=== PATIENT | female | born 1945 | race African-American/Black ===

== ENCOUNTER → 2018-04-04 | Day surgery (SDC) | payer MEDICARE, OTHER ==
--- NOTE | 2018-04-01 14:05 | Diagnostic Imaging Report ---
EXAMINATION: CHEST 2 VIEWS INDICATION: Pre-admit COMPARISON: None FINDINGS: TUBES and LINES: None. LUNGS: Lungs are well inflated. Lungs are clear. There is no evidence of pneumonia or pulmonary edema. PLEURA: No pleural effusion or pneumothorax. HEART AND MEDIASTINUM: The cardiomediastinal silhouette is unremarkable. BONES AND SOFT TISSUES: No acute osseous lesion. Soft tissues are unremarkable. UPPER ABDOMEN: No free air under the diaphragm. IMPRESSION: No acute radiographic abnormality. Signed by: Dr. Jj Domingo MD on 04/01/2018 2:01 PM
[2018-04-01 14:55] LABS: BASOPHILS % 0.4 % (0.0-1.0); EOSINOPHILS # (AUTO) 0.4 (0.0-0.4); EOSINOPHILS % 4.6 % (0.0-6.0); HEMATOCRIT 37.5 % (34.2-44.1); LYMPHOCYTES # (AUTO) 2.3 (1.0-3.2); LYMPHOCYTES % 30.3 % (18.0-39.1); MEAN CORPUSCULAR HEMOGLOBIN 28.4 pg (28-32); MEAN CORPUSCULAR VOLUME 88.7 fL (81-99); MONOCYTES # (AUTO) 0.5 (0.2-0.8); MONOCYTES % 6.1 % (4.4-11.3); NEUTROPHILS # (AUTO) 4.4 (2.1-6.9); NEUTROPHILS % 58.3 % (38.7-80.0); PLATELET COUNT 155 x10e3/uL (140-360); RED BLOOD COUNT 4.23 x10e6/uL (3.6-5.1); RED CELL DISTRIBUTION WIDTH 12.6 % (11.7-14.4)
[2018-04-01 14:58] LABS: ANION GAP 15.6 mmol/L (8-16); BLOOD UREA NITROGEN 17 mg/dL (7-26); BUN/CREATININE RATIO 20 (6-25); CALCIUM 9.8 mg/dL (8.4-10.2); CARBON DIOXIDE 24 mmol/L (22-29); CHLORIDE 102 mmol/L (98-107); CREATININE, SERUM 0.84 mg/dL (0.57-1.11); EST GLOMERULAR FILTRATION RATE > 60 ML/MIN (60-); GLUCOSE 239 mg/dL (74-118); POTASSIUM 3.6 mmol/L (3.5-5.1); SODIUM 138 mmol/L (136-145)
[~2018-04-04] MED LIST: AMLODIPINE BESY10 MG PO; ASPIRIN81 MG; ATENOLOL50 MG; BUPIVACAINE HCL 0.5% INJ 30 ML VIAL INJ ONE; CEFAZOLIN SOD 2 GM/D5W 50ML 50 ML IV ONE; DEXAMETHASONE SOD PHOS INJ 4 MG/ML VIAL ONE; EPHEDRINE SULFATE INJ 50 MG/10 ML SYR ONE; FENTANYL CITRATE/PF 100MCG/2 ML INJ ONE; GLIMEPIRIDE4 MG; HYZAAR 100-251 EACH; INSULIN REGULAR, HUMAN 100 UNIT/1 ML 3ML VIAL ONE; LIDOCAINE HCL 2% LOCAL INJ 5 ML SDV VIAL INJ ONE; MIDAZOLAM HCL 2 MG/2 ML VIAL ONE; NEOSTIGMINE 1 MG/ML 10ML VIAL ONE; PROPOFOL IV EMULSION 10 MG/ML 20 ML VIAL ONE; SEVOFLURANE INHAL SOLN 250 ML PEN BTL ONE
[2018-04-04 10:30] VITALS: BP 141/74
--- NOTE | 2018-04-04 10:44 | Operative Report ---
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 TITLE OF OPERATION: Arthroplasty, digits 4 and 5 of the right foot with debridement of the chronic pre-ulcerative lesions. ANESTHESIA: General endotracheal. HEMOSTASIS: A right thigh tourniquet at 350 mmHg. PROCEDURE IN DETAIL: The patient was taken to the operating room in a mildly state and placed upon the operating table in the supine position. Following induction of general anesthetic, the right lower extremity was elevated to 60 degrees to exsanguinate before inflating the pneumatic thigh tourniquet to 350 mmHg for hemostasis. Her lower extremity was placed upon the operating table prior to performing the following procedure. PROCEDURE #1: Arthroplasty, 4th and 5th digits of the right foot. A linear longitudinal incision made overlying the dorsal aspect of the proximal phalangeal joint of the right foot. The incision was deepened via sharp and blunt dissection down to the level of the dorsal capsular structure. Care was taken to identify and retract all vital structures encountered. The head of the proximal phalanx was delivered in the surgical site and a transverse tenotomy was performed. The head of the proximal phalanx was resected utilizing an oscillating saw to straighten the 4th and 5th digits. These were done separately and simultaneously through separate incisions. The area was then irrigated with copious amounts of sterile saline solution. Deep closure and tendon repair was 3-0 Vicryl. Subcutaneous closure was 4-0 Vicryl and skin closure was 4-0 nylon. Digit alignment was noted to be appropriate. All superficial lesions, pre-ulcerative nature were debrided utilizing a 15 blade as well. There was no full-thickness skin break in those areas. The areas after copious irrigation and cleaning were dressed with the appropriate mildly compressive dressings utilizing a Betadine splint, as well as Adaptic, 4 x 4's, and gauze. The release of the pneumatic thigh tourniquet showed a normal hyperemic flush to all digits of the right foot. Patient left the operating room with vital signs stable and in apparent satisfactory condition having tolerated both anesthetic and procedure very well. Job#: [id number]
== END | disposition home or self-care (01) ==
LOC: OR 06:53
PROVIDERS: ATTEND Podiatrist Foot Surgery
DX: M20.41 Other hammer toe(s) (acquired), right foot (principal); L98.8 Other specified disorders of the skin and subcutaneous tissue; I10 Essential (primary) hypertension; E11.9 Type 2 diabetes mellitus without complications; Z88.5 Allergy status to narcotic agent; Z01.810 Encounter for preprocedural cardiovascular examination; Z01.812 Encounter for preprocedural laboratory examination; Z01.818 Encounter for other preprocedural examination; Z79.84 Long term (current) use of oral hypoglycemic drugs
CPT/HCPCS: 28285 ×2; 36415 ×2; 71046; 80048; 82948; 85025; 93005; J1100; J2001; J2250; 76000; J2710

== ENCOUNTER 2022-05-01 12:50 | Inpatient (IN) | payer MEDICARE, OTHER ==
[2022-05-01] VITALS (10 sets, daily range): BP systolic 115–155; BP diastolic 50–70
[~2022-05-01] VITALS: Ht 167.6 cm; Wt 127.0 kg
[~2022-05-01 12:50] MED LIST changes: -ATENOLOL50 MG; +ATENOLOL50 MG PO; -BUPIVACAINE HCL 0.5% INJ 30 ML VIAL INJ ONE; -CEFAZOLIN SOD 2 GM/D5W 50ML 50 ML IV ONE; -DEXAMETHASONE SOD PHOS INJ 4 MG/ML VIAL ONE; -EPHEDRINE SULFATE INJ 50 MG/10 ML SYR ONE; -FENTANYL CITRATE/PF 100MCG/2 ML INJ ONE; -GLIMEPIRIDE4 MG; +GLIMEPIRIDE4 MG PO; -HYZAAR 100-251 EACH; +HYZAAR 100-251 EACH PO; -INSULIN REGULAR, HUMAN 100 UNIT/1 ML 3ML VIAL ONE; -LIDOCAINE HCL 2% LOCAL INJ 5 ML SDV VIAL INJ ONE; -MIDAZOLAM HCL 2 MG/2 ML VIAL ONE; -NEOSTIGMINE 1 MG/ML 10ML VIAL ONE; -PROPOFOL IV EMULSION 10 MG/ML 20 ML VIAL ONE; -SEVOFLURANE INHAL SOLN 250 ML PEN BTL ONE
[2022-05-01] MEDS ORDERED: FUROSEMIDE INJ 10 MG/ML 4 ML VIAL IV ONE (13:00)
[2022-05-01 14:22] LABS: BASOPHILS # (AUTO) 0.1 (0.0-0.1); BASOPHILS % 0.5 % (0.0-1.0); EOSINOPHILS # (AUTO) 0.3 (0.0-0.4); EOSINOPHILS % 3.1 % (0.0-6.0); HEMATOCRIT 29.7 % (34.2-44.1); HEMOGLOBIN 8.3 g/dL (12.0-16.0); LYMPHOCYTES # (AUTO) 1.1 (1.0-3.2); LYMPHOCYTES % 11.3 % (18.0-39.1); MEAN CORPUSCULAR HEMOGLOBIN 28.1 pg (28-32); MEAN CORPUSCULAR HGB CONC 27.9 g/dL (31-35); MEAN CORPUSCULAR VOLUME 100.7 fL (81-99); MONOCYTES # (AUTO) 0.8 (0.2-0.8); MONOCYTES % 7.9 % (4.4-11.3); NEUTROPHILS # (AUTO) 7.7 (2.1-6.9); NEUTROPHILS % 76.9 % (38.7-80.0); PLATELET COUNT 234 x10e3/uL (140-360); RED BLOOD COUNT 2.95 x10e6/uL (3.6-5.1); RED CELL DISTRIBUTION WIDTH 14.5 % (11.7-14.4)
[2022-05-01 14:59] LABS: ALANINE AMINOTRANSFERASE 15 IU/L (0-55); ALBUMIN 2.8 g/dL (3.5-5.0); ALBUMIN/GLOBULIN RATIO 0.8 (0.8-2.0); ALKALINE PHOSPHATASE 92 IU/L (40-150); ANION GAP 17.2 mmol/L (8-16); BLOOD UREA NITROGEN 22 mg/dL (7-26); BUN/CREATININE RATIO 24 (6-25); CALCIUM 8.6 mg/dL (8.4-10.2); CARBON DIOXIDE 24 mmol/L (22-29); CHLORIDE 105 mmol/L (98-107); GLUCOSE 212 mg/dL (74-118); POTASSIUM 4.2 mmol/L (3.5-5.1); SODIUM 142 mmol/L (136-145)
[2022-05-01] MEDS ORDERED: IOPAMIDOL 370 MG/ML 100 ML INFUS..BTL INJ ONE (17:21)
[2022-05-01] MEDS ORDERED: ASPIRIN EC81 MG PO (18:29)
[2022-05-01] MEDS ORDERED: PIOGLITAZONE HC45 MG PO (18:48)
[2022-05-01] MEDS ORDERED: OMEPRAZOLE40 MG PO (18:48)
[2022-05-01] MEDS ORDERED: ULTRAM 50MG50 MG PO (18:48)
[2022-05-01] MEDS ORDERED: METFORMIN HCL1000 MG PO (18:48)
[2022-05-01] MEDS ORDERED: MONTELUKAST SOD10 MG PO (18:48)
[2022-05-01] MEDS ORDERED: IPRATROPIUM BRO15 ML (18:48)
[2022-05-01] MEDS ORDERED: FERROUS SULFAT324 MG PO (18:48)
[2022-05-01] MEDS ORDERED: CELECOXIB200 MG PO (18:48)
[2022-05-01] MEDS ORDERED: CYCLOBENZAPRINE10 MG PO (18:49)
[2022-05-01] MEDS ORDERED: COQ-10100 MG PO (18:57)
[2022-05-01] MEDS ORDERED: COLACE100 M1 PO (18:57)
[2022-05-01] MEDS ORDERED: ZYRTEC10 MG PO (18:57)
[2022-05-01] MEDS ORDERED: VITAMIN C1000 MG PO (18:57)
[2022-05-01] MEDS ORDERED: LIPITOR20 MG PO (22:30)
[2022-05-02] VITALS (8 sets, daily range): BP systolic 115–139; BP diastolic 52–70
[2022-05-02 04:52] LABS: BASOPHILS % 0.3 % (0.0-1.0); EOSINOPHILS # (AUTO) 0.4 (0.0-0.4); EOSINOPHILS % 5.5 % (0.0-6.0); HEMATOCRIT 27.3 % (34.2-44.1); HEMOGLOBIN 7.9 g/dL (12.0-16.0); LYMPHOCYTES % 14.1 % (18.0-39.1); MEAN CORPUSCULAR HEMOGLOBIN 28.7 pg (28-32); MEAN CORPUSCULAR HGB CONC 28.9 g/dL (31-35); MEAN CORPUSCULAR VOLUME 99.3 fL (81-99); MONOCYTES # (AUTO) 0.8 (0.2-0.8); MONOCYTES % 10.3 % (4.4-11.3); NEUTROPHILS # (AUTO) 5.1 (2.1-6.9); NEUTROPHILS % 69.5 % (38.7-80.0); PLATELET COUNT 285 x10e3/uL (140-360); RED BLOOD COUNT 2.75 x10e6/uL (3.6-5.1); RED CELL DISTRIBUTION WIDTH 14.4 % (11.7-14.4)
[2022-05-02 05:08] LABS: ANION GAP 13.9 mmol/L (8-16); CALCIUM 8.5 mg/dL (8.4-10.2); CREATININE, SERUM 0.81 mg/dL (0.57-1.11); POTASSIUM 3.9 mmol/L (3.5-5.1)
[2022-05-02] MEDS: ATENOLOL 50 MG TAB PO SCH ×2 (09:00→12:04)
[2022-05-02] MEDS ORDERED: FUROSEMIDE INJ 10 MG/ML 4 ML VIAL IV SCH (09:00)
[2022-05-02] MEDS: LOSARTAN POTASSIUM 25 MG TAB PO SCH ×3 (09:00→17:00)
[2022-05-02] MEDS: ASPIRIN 81 MG ENTERIC COATED PO SCH ×2 (09:48→17:18)
[2022-05-02] MEDS: DOCUSATE SODIUM 100 MG CAP PO SCH ×2 (09:49→17:18)
[2022-05-02] MEDS: METFORMIN HCL 500 MG TAB CR PO SCH ×2 (10:09→17:17)
[2022-05-02] MEDS: GLIMEPIRIDE 2 MG TAB PO SCH (10:27)
[2022-05-02] MEDS: FUROSEMIDE INJ 10 MG/ML 4 ML VIAL IV SCH ×3 (11:59→23:45)
[2022-05-02] MEDS: MONTELUKAST SODIUM 10 MG TAB PO SCH (22:25)
[2022-05-02] MEDS: ATORVASTATIN 20 MG TAB PO SCH (22:25)
[2022-05-03] VITALS (10 sets, daily range): BP systolic 93–159; BP diastolic 49–74
[2022-05-03] MEDS ORDERED: CEPACOL SORE THROAT LOZENGES PO PRN (04:00)
[2022-05-03] MEDS: ACETAMINOPHEN 325 MG TAB PO PRN ×2 (04:08→20:30)
[2022-05-03] MEDS: GUAIFENESIN 200 MG/10 ML UDC PO PRN ×2 (05:10→11:30)
[2022-05-03] MEDS: FUROSEMIDE INJ 10 MG/ML 4 ML VIAL IV SCH ×4 (05:13→21:59)
[2022-05-03 05:30] LABS: BASOPHILS % 0.3 % (0.0-1.0); EOSINOPHILS # (AUTO) 0.5 (0.0-0.4); EOSINOPHILS % 6.3 % (0.0-6.0); HEMATOCRIT 26.7 % (34.2-44.1); HEMOGLOBIN 7.8 g/dL (12.0-16.0); LYMPHOCYTES # (AUTO) 1.3 (1.0-3.2); LYMPHOCYTES % 17.6 % (18.0-39.1); MEAN CORPUSCULAR HEMOGLOBIN 28.4 pg (28-32); MEAN CORPUSCULAR HGB CONC 29.2 g/dL (31-35); MEAN CORPUSCULAR VOLUME 97.1 fL (81-99); MONOCYTES # (AUTO) 0.9 (0.2-0.8); MONOCYTES % 11.7 % (4.4-11.3); NEUTROPHILS # (AUTO) 4.7 (2.1-6.9); NEUTROPHILS % 63.7 % (38.7-80.0); PLATELET COUNT 287 x10e3/uL (140-360); RED BLOOD COUNT 2.75 x10e6/uL (3.6-5.1); RED CELL DISTRIBUTION WIDTH 14.5 % (11.7-14.4)
[2022-05-03 05:46] LABS: ALBUMIN 2.6 g/dL (3.5-5.0); ALBUMIN/GLOBULIN RATIO 0.8 (0.8-2.0); ANION GAP 15.3 mmol/L (8-16); CALCIUM 8.3 mg/dL (8.4-10.2); CREATININE, SERUM 0.77 mg/dL (0.57-1.11); MAGNESIUM 1.4 MG/DL (1.3-2.1); POTASSIUM 3.3 mmol/L (3.5-5.1)
[2022-05-03] MEDS: DOCUSATE SODIUM 100 MG CAP PO SCH ×2 (08:57→15:49)
[2022-05-03] MEDS: METFORMIN HCL 500 MG TAB CR PO SCH ×2 (08:57→15:50)
[2022-05-03] MEDS: ASPIRIN 81 MG ENTERIC COATED PO SCH ×2 (08:57→15:49)
[2022-05-03] MEDS: GLIMEPIRIDE 2 MG TAB PO SCH (08:58)
[2022-05-03] MEDS: LOSARTAN POTASSIUM 25 MG TAB PO SCH (09:00)
[2022-05-03] MEDS: NYSTATIN 15 GM POWDER UD BTL TOP SCH (09:00)
[2022-05-03] MEDS: ATENOLOL 50 MG TAB PO SCH (10:51)
[2022-05-03] MEDS ORDERED: MAGNESIUM SULFATE 2GM/50ML 50 ML IV ONE (11:30)
[2022-05-03] MEDS ORDERED: POTASSIUM CHLORIDE 20 MEQ TAB CR PO ONE (11:30)
[2022-05-03] MEDS: MONTELUKAST SODIUM 10 MG TAB PO SCH (20:21)
[2022-05-03] MEDS: ATORVASTATIN 20 MG TAB PO SCH (20:21)
[2022-05-03] MEDS: TRAMADOL HCL 50 MG TAB PO PRN (21:59)
[2022-05-04] VITALS (7 sets, daily range): BP systolic 100–152; BP diastolic 51–72
[2022-05-04] MEDS: GUAIFENESIN 200 MG/10 ML UDC PO PRN (00:31)
[2022-05-04] MEDS: FUROSEMIDE INJ 10 MG/ML 4 ML VIAL IV SCH ×3 (05:41→18:00)
[2022-05-04 05:59] LABS: BASOPHILS % 0.4 % (0.0-1.0); EOSINOPHILS # (AUTO) 0.5 (0.0-0.4); EOSINOPHILS % 7.2 % (0.0-6.0); HEMATOCRIT 26.2 % (34.2-44.1); HEMOGLOBIN 7.7 g/dL (12.0-16.0); LYMPHOCYTES # (AUTO) 1.3 (1.0-3.2); LYMPHOCYTES % 18.5 % (18.0-39.1); MEAN CORPUSCULAR HEMOGLOBIN 28.4 pg (28-32); MEAN CORPUSCULAR HGB CONC 29.4 g/dL (31-35); MEAN CORPUSCULAR VOLUME 96.7 fL (81-99); MONOCYTES # (AUTO) 0.8 (0.2-0.8); MONOCYTES % 12.3 % (4.4-11.3); NEUTROPHILS # (AUTO) 4.2 (2.1-6.9); NEUTROPHILS % 61.5 % (38.7-80.0); PLATELET COUNT 293 x10e3/uL (140-360); RED BLOOD COUNT 2.71 x10e6/uL (3.6-5.1)
[2022-05-04 06:53] LABS: ALBUMIN 2.6 g/dL (3.5-5.0); ALBUMIN/GLOBULIN RATIO 0.8 (0.8-2.0); ANION GAP 14.3 mmol/L (8-16); CALCIUM 8.3 mg/dL (8.4-10.2); CREATININE, SERUM 0.68 mg/dL (0.57-1.11); MAGNESIUM 1.5 MG/DL (1.3-2.1); POTASSIUM 3.3 mmol/L (3.5-5.1)
[2022-05-04] MEDS: METFORMIN HCL 500 MG TAB CR PO SCH ×2 (08:00→17:00)
[2022-05-04] MEDS: LOSARTAN POTASSIUM 25 MG TAB PO SCH (09:00)
[2022-05-04] MEDS: ENOXAPARIN SOD INJ 40 MG/0.4 ML SYR SC SCH (09:00)
[2022-05-04] MEDS: DOCUSATE SODIUM 100 MG CAP PO SCH ×2 (09:00→17:00)
[2022-05-04] MEDS: ATENOLOL 50 MG TAB PO SCH (09:00)
[2022-05-04] MEDS: GLIMEPIRIDE 2 MG TAB PO SCH (09:00)
[2022-05-04] MEDS ORDERED: ENOXAPARIN SOD INJ 40 MG/0.4 ML SYR SC SCH (09:00)
[2022-05-04] MEDS: ASPIRIN 81 MG ENTERIC COATED PO SCH ×2 (09:00→17:00)
[2022-05-04] MEDS: NYSTATIN 15 GM POWDER UD BTL TOP SCH (13:10)
[2022-05-04] MEDS: TRAMADOL HCL 50 MG TAB PO PRN (14:12)
[2022-05-04] MEDS: FERROUS SULFATE 325 MG TAB PO SCH ×2 (15:00→21:15)
[2022-05-04] MEDS: ATORVASTATIN 20 MG TAB PO SCH (21:15)
[2022-05-04] MEDS: MONTELUKAST SODIUM 10 MG TAB PO SCH (21:15)
[2022-05-05] VITALS (7 sets, daily range): BP systolic 114–139; BP diastolic 51–64
[2022-05-05] MEDS: FUROSEMIDE INJ 10 MG/ML 4 ML VIAL IV SCH ×4 (01:11→18:15)
[2022-05-05] MEDS: METFORMIN HCL 500 MG TAB CR PO SCH ×3 (08:00→21:18)
[2022-05-05] MEDS: GLIMEPIRIDE 2 MG TAB PO SCH (08:00)
[2022-05-05] MEDS: FERROUS SULFATE 325 MG TAB PO SCH ×3 (09:00→21:18)
[2022-05-05] MEDS: ASPIRIN 81 MG ENTERIC COATED PO SCH ×2 (09:00→18:15)
[2022-05-05] MEDS: LOSARTAN POTASSIUM 25 MG TAB PO SCH (09:00)
[2022-05-05] MEDS: ATENOLOL 50 MG TAB PO SCH (09:00)
[2022-05-05] MEDS: DOCUSATE SODIUM 100 MG CAP PO SCH ×2 (09:00→17:00)
[2022-05-05] MEDS: NYSTATIN 15 GM POWDER UD BTL TOP SCH (09:00)
[2022-05-05] MEDS: ENOXAPARIN SOD INJ 40 MG/0.4 ML SYR SC SCH (09:00)
[2022-05-05] MEDS: TRAMADOL HCL 50 MG TAB PO PRN (13:02)
[2022-05-05] MEDS: CYCLOBENZAPRINE HCL 10 MG TAB PO PRN ×2 (14:56→21:18)
[2022-05-05] MEDS: GUAIFENESIN 200 MG/10 ML UDC PO PRN (15:00)
[2022-05-05] MEDS: ATORVASTATIN 20 MG TAB PO SCH (21:18)
[2022-05-05] MEDS: MONTELUKAST SODIUM 10 MG TAB PO SCH (21:18)
[2022-05-05] MEDS: LORATADINE 10 MG TAB PO SCH (21:45)
[2022-05-06] VITALS (7 sets, daily range): BP systolic 108–134; BP diastolic 49–84
[2022-05-06] MEDS: FUROSEMIDE INJ 10 MG/ML 4 ML VIAL IV SCH ×4 (00:20→17:55)
[2022-05-06 04:40] LABS: BASOPHILS # (AUTO) 0.1 (0.0-0.1); BASOPHILS % 0.7 % (0.0-1.0); EOSINOPHILS # (AUTO) 0.5 (0.0-0.4); EOSINOPHILS % 7.2 % (0.0-6.0); HEMATOCRIT 29.2 % (34.2-44.1); HEMOGLOBIN 8.6 g/dL (12.0-16.0); LYMPHOCYTES % 27.1 % (18.0-39.1); MEAN CORPUSCULAR HGB CONC 29.5 g/dL (31-35); MEAN CORPUSCULAR VOLUME 95.1 fL (81-99); NEUTROPHILS # (AUTO) 3.7 (2.1-6.9); NEUTROPHILS % 50.7 % (38.7-80.0); PLATELET COUNT 324 x10e3/uL (140-360); RED BLOOD COUNT 3.07 x10e6/uL (3.6-5.1); RED CELL DISTRIBUTION WIDTH 14.1 % (11.7-14.4)
[2022-05-06 04:59] LABS: ALBUMIN 2.7 g/dL (3.5-5.0); ALBUMIN/GLOBULIN RATIO 0.8 (0.8-2.0); ANION GAP 14.9 mmol/L (8-16); CALCIUM 8.5 mg/dL (8.4-10.2); CREATININE, SERUM 0.79 mg/dL (0.57-1.11)
[2022-05-06 05:01] LABS: POTASSIUM 2.9 mmol/L (3.5-5.1)
[2022-05-06] MEDS ORDERED: POTASSIUM CHLORIDE 20 MEQ TAB CR PO STA (05:10)
[2022-05-06] MEDS ORDERED: POTASSIUM CHLORIDE 20MEQ/100ML 200 ML IV ONE (05:15)
[2022-05-06] MEDS ORDERED: SODIUM CHLORIDE 0.9% 100 ML ONE (05:37)
[2022-05-06] MEDS: ENOXAPARIN SOD INJ 40 MG/0.4 ML SYR SC SCH (09:00)
[2022-05-06] MEDS: DOCUSATE SODIUM 100 MG CAP PO SCH ×2 (09:00→17:00)
[2022-05-06] MEDS: NYSTATIN 15 GM POWDER UD BTL TOP SCH (09:00)
[2022-05-06] MEDS: LOSARTAN POTASSIUM 25 MG TAB PO SCH (09:00)
[2022-05-06] MEDS: ASPIRIN 81 MG ENTERIC COATED PO SCH ×2 (09:34→17:00)
[2022-05-06] MEDS: FERROUS SULFATE 325 MG TAB PO SCH ×3 (09:34→21:36)
[2022-05-06] MEDS: ATENOLOL 50 MG TAB PO SCH (09:34)
[2022-05-06] MEDS: GLIMEPIRIDE 2 MG TAB PO SCH (09:35)
[2022-05-06] MEDS: TRAMADOL HCL 50 MG TAB PO PRN ×2 (14:30→21:56)
[2022-05-06] MEDS: GUAIFENESIN 200 MG/10 ML UDC PO PRN ×2 (14:30→21:55)
[2022-05-06] MEDS: CYCLOBENZAPRINE HCL 10 MG TAB PO PRN ×2 (14:30→21:55)
[2022-05-06] MEDS: LORATADINE 10 MG TAB PO SCH (21:35)
[2022-05-06] MEDS: MONTELUKAST SODIUM 10 MG TAB PO SCH (21:36)
[2022-05-06] MEDS: ATORVASTATIN 20 MG TAB PO SCH (21:36)
[2022-05-06] MEDS: METFORMIN HCL 500 MG TAB CR PO SCH (21:36)
[2022-05-07] VITALS (7 sets, daily range): BP systolic 113–149; BP diastolic 51–60
[2022-05-07] MEDS: FUROSEMIDE INJ 10 MG/ML 4 ML VIAL IV SCH ×4 (00:14→16:50)
[2022-05-07 06:00] LABS: BASOPHILS # (AUTO) 0.1 (0.0-0.1); BASOPHILS % 0.6 % (0.0-1.0); EOSINOPHILS # (AUTO) 0.6 (0.0-0.4); EOSINOPHILS % 7.5 % (0.0-6.0); HEMATOCRIT 28.7 % (34.2-44.1); HEMOGLOBIN 8.8 g/dL (12.0-16.0); LYMPHOCYTES # (AUTO) 1.9 (1.0-3.2); LYMPHOCYTES % 23.9 % (18.0-39.1); MEAN CORPUSCULAR HGB CONC 30.7 g/dL (31-35); MEAN CORPUSCULAR VOLUME 91.4 fL (81-99); MONOCYTES # (AUTO) 1.1 (0.2-0.8); NEUTROPHILS # (AUTO) 4.2 (2.1-6.9); NEUTROPHILS % 53.5 % (38.7-80.0); PLATELET COUNT 334 x10e3/uL (140-360); RED BLOOD COUNT 3.14 x10e6/uL (3.6-5.1); RED CELL DISTRIBUTION WIDTH 14.1 % (11.7-14.4)
[2022-05-07 07:25] LABS: ALBUMIN 2.8 g/dL (3.5-5.0); ALBUMIN/GLOBULIN RATIO 0.9 (0.8-2.0); ANION GAP 16.3 mmol/L (8-16); CALCIUM 8.3 mg/dL (8.4-10.2); CREATININE, SERUM 0.83 mg/dL (0.57-1.11); MAGNESIUM 1.4 MG/DL (1.3-2.1); POTASSIUM 3.3 mmol/L (3.5-5.1)
[2022-05-07] MEDS: ENOXAPARIN SOD INJ 40 MG/0.4 ML SYR SC SCH (08:49)
[2022-05-07] MEDS: GLIMEPIRIDE 2 MG TAB PO SCH (08:50)
[2022-05-07] MEDS: FERROUS SULFATE 325 MG TAB PO SCH ×3 (08:50→21:46)
[2022-05-07] MEDS: ASPIRIN 81 MG ENTERIC COATED PO SCH ×2 (08:50→16:49)
[2022-05-07] MEDS: DOCUSATE SODIUM 100 MG CAP PO SCH ×2 (08:50→16:49)
[2022-05-07] MEDS: ATENOLOL 50 MG TAB PO SCH (08:51)
[2022-05-07] MEDS: LOSARTAN POTASSIUM 25 MG TAB PO SCH (08:51)
[2022-05-07] MEDS: NYSTATIN 15 GM POWDER UD BTL TOP SCH (09:59)
[2022-05-07] MEDS ORDERED: POTASSIUM CHLORIDE 20 MEQ TAB CR PO ONE (10:00)
[2022-05-07] MEDS: LORATADINE 10 MG TAB PO SCH (21:44)
[2022-05-07] MEDS: METFORMIN HCL 500 MG TAB CR PO SCH (21:45)
[2022-05-07] MEDS: MONTELUKAST SODIUM 10 MG TAB PO SCH (21:45)
[2022-05-07] MEDS: ATORVASTATIN 20 MG TAB PO SCH (21:46)
[2022-05-07] MEDS: CYCLOBENZAPRINE HCL 10 MG TAB PO PRN (21:54)
[2022-05-07] MEDS: GUAIFENESIN 200 MG/10 ML UDC PO PRN (21:54)
[2022-05-07] MEDS: TRAMADOL HCL 50 MG TAB PO PRN (21:55)
[2022-05-08] VITALS (8 sets, daily range): BP systolic 101–142; BP diastolic 46–66
[2022-05-08] MEDS: FUROSEMIDE INJ 10 MG/ML 4 ML VIAL IV SCH ×4 (00:11→16:50)
[2022-05-08 06:00] LABS: BASOPHILS # (AUTO) 0.1 (0.0-0.1); BASOPHILS % 0.6 % (0.0-1.0); EOSINOPHILS # (AUTO) 0.6 (0.0-0.4); EOSINOPHILS % 7.1 % (0.0-6.0); HEMATOCRIT 31.3 % (34.2-44.1); HEMOGLOBIN 9.3 g/dL (12.0-16.0); LYMPHOCYTES % 24.2 % (18.0-39.1); MEAN CORPUSCULAR HEMOGLOBIN 28.2 pg (28-32); MEAN CORPUSCULAR HGB CONC 29.7 g/dL (31-35); MEAN CORPUSCULAR VOLUME 94.8 fL (81-99); MONOCYTES # (AUTO) 1.1 (0.2-0.8); MONOCYTES % 13.2 % (4.4-11.3); NEUTROPHILS # (AUTO) 4.6 (2.1-6.9); NEUTROPHILS % 54.4 % (38.7-80.0); PLATELET COUNT 355 x10e3/uL (140-360); RED CELL DISTRIBUTION WIDTH 14.1 % (11.7-14.4)
[2022-05-08 06:20] LABS: ALBUMIN 2.8 g/dL (3.5-5.0); ALBUMIN/GLOBULIN RATIO 0.8 (0.8-2.0); ANION GAP 15.3 mmol/L (8-16); CALCIUM 8.7 mg/dL (8.4-10.2); CREATININE, SERUM 0.85 mg/dL (0.57-1.11); MAGNESIUM 1.4 MG/DL (1.3-2.1); POTASSIUM 3.3 mmol/L (3.5-5.1)
[2022-05-08] MEDS: GLIMEPIRIDE 2 MG TAB PO SCH (08:43)
[2022-05-08] MEDS ORDERED: MAGNESIUM SULFATE 2GM/50ML 50 ML IV ONE (09:00)
[2022-05-08] MEDS: LOSARTAN POTASSIUM 25 MG TAB PO SCH (09:19)
[2022-05-08] MEDS: ASPIRIN 81 MG ENTERIC COATED PO SCH ×2 (09:19→16:49)
[2022-05-08] MEDS: DOCUSATE SODIUM 100 MG CAP PO SCH ×2 (09:19→16:49)
[2022-05-08] MEDS: ENOXAPARIN SOD INJ 40 MG/0.4 ML SYR SC SCH (09:19)
[2022-05-08] MEDS: FERROUS SULFATE 325 MG TAB PO SCH ×3 (09:19→20:49)
[2022-05-08] MEDS: ATENOLOL 50 MG TAB PO SCH (09:20)
[2022-05-08] MEDS: NYSTATIN 15 GM POWDER UD BTL TOP SCH (09:20)
[2022-05-08] MEDS: GUAIFENESIN 200 MG/10 ML UDC PO PRN ×2 (15:20→20:56)
[2022-05-08] MEDS: LORATADINE 10 MG TAB PO SCH (20:48)
[2022-05-08] MEDS: MONTELUKAST SODIUM 10 MG TAB PO SCH (20:48)
[2022-05-08] MEDS: ATORVASTATIN 20 MG TAB PO SCH (20:48)
[2022-05-08] MEDS: METFORMIN HCL 500 MG TAB CR PO SCH (20:48)
[2022-05-09] VITALS (8 sets, daily range): BP systolic 110–135; BP diastolic 52–64
[2022-05-09] MEDS: FUROSEMIDE INJ 10 MG/ML 4 ML VIAL IV SCH ×5 (00:01→23:46)
[2022-05-09] MEDS ORDERED: POTASSIUM CHLORIDE 20 MEQ TAB CR PO ONE (08:00)
[2022-05-09] MEDS: GLIMEPIRIDE 2 MG TAB PO SCH (08:30)
[2022-05-09] MEDS: FERROUS SULFATE 325 MG TAB PO SCH ×3 (08:59→20:12)
[2022-05-09] MEDS: ASPIRIN 81 MG ENTERIC COATED PO SCH ×2 (08:59→17:24)
[2022-05-09] MEDS: ATENOLOL 50 MG TAB PO SCH (09:00)
[2022-05-09] MEDS: LOSARTAN POTASSIUM 25 MG TAB PO SCH (09:01)
[2022-05-09] MEDS: NYSTATIN 15 GM POWDER UD BTL TOP SCH (09:01)
[2022-05-09] MEDS: ENOXAPARIN SOD INJ 40 MG/0.4 ML SYR SC SCH (09:01)
[2022-05-09] MEDS: DOCUSATE SODIUM 100 MG CAP PO SCH ×2 (09:01→17:23)
[2022-05-09] MEDS: SACUBITRIL/VALSARTAN 1 EACH TABLET PO SCH (17:24)
[2022-05-09] MEDS: LORATADINE 10 MG TAB PO SCH (20:12)
[2022-05-09] MEDS: METFORMIN HCL 500 MG TAB CR PO SCH (20:12)
[2022-05-09] MEDS: MONTELUKAST SODIUM 10 MG TAB PO SCH (20:12)
[2022-05-09] MEDS: ATORVASTATIN 20 MG TAB PO SCH (20:12)
[2022-05-10] VITALS (7 sets, daily range): BP systolic 99–142; BP diastolic 49–59
[2022-05-10] MEDS: FUROSEMIDE INJ 10 MG/ML 4 ML VIAL IV SCH ×3 (04:57→17:06)
[2022-05-10 05:28] LABS: BASOPHILS % 0.5 % (0.0-1.0); EOSINOPHILS # (AUTO) 0.5 (0.0-0.4); EOSINOPHILS % 5.1 % (0.0-6.0); HEMATOCRIT 31.3 % (34.2-44.1); HEMOGLOBIN 9.4 g/dL (12.0-16.0); LYMPHOCYTES # (AUTO) 1.9 (1.0-3.2); LYMPHOCYTES % 21.9 % (18.0-39.1); MEAN CORPUSCULAR HEMOGLOBIN 28.2 pg (28-32); MONOCYTES # (AUTO) 1.1 (0.2-0.8); NEUTROPHILS # (AUTO) 5.3 (2.1-6.9); NEUTROPHILS % 60.2 % (38.7-80.0); PLATELET COUNT 362 x10e3/uL (140-360); RED BLOOD COUNT 3.33 x10e6/uL (3.6-5.1); RED CELL DISTRIBUTION WIDTH 13.9 % (11.7-14.4)
[2022-05-10 05:47] LABS: ALBUMIN 2.9 g/dL (3.5-5.0); ALBUMIN/GLOBULIN RATIO 0.9 (0.8-2.0); ANION GAP 17.2 mmol/L (8-16); CALCIUM 8.8 mg/dL (8.4-10.2); CREATININE, SERUM 0.91 mg/dL (0.57-1.11); MAGNESIUM 1.5 MG/DL (1.3-2.1); POTASSIUM 3.2 mmol/L (3.5-5.1)
[2022-05-10] MEDS ORDERED: POTASSIUM CHLORIDE 20 MEQ TAB CR PO STA (06:37)
[2022-05-10] MEDS ORDERED: MAGNESIUM SULFATE 2GM/50ML 50 ML IV ONE (07:30)
[2022-05-10] MEDS: FERROUS SULFATE 325 MG TAB PO SCH ×3 (08:24→20:51)
[2022-05-10] MEDS: SACUBITRIL/VALSARTAN 1 EACH TABLET PO SCH ×2 (08:24→17:07)
[2022-05-10] MEDS: ASPIRIN 81 MG ENTERIC COATED PO SCH ×2 (08:24→17:08)
[2022-05-10] MEDS: GLIMEPIRIDE 2 MG TAB PO SCH (08:24)
[2022-05-10] MEDS: DOCUSATE SODIUM 100 MG CAP PO SCH ×2 (08:25→17:07)
[2022-05-10] MEDS: ATENOLOL 50 MG TAB PO SCH (08:26)
[2022-05-10] MEDS: ENOXAPARIN SOD INJ 40 MG/0.4 ML SYR SC SCH (08:26)
[2022-05-10] MEDS: MONTELUKAST SODIUM 10 MG TAB PO SCH (20:51)
[2022-05-10] MEDS: ATORVASTATIN 20 MG TAB PO SCH (20:51)
[2022-05-10] MEDS: LORATADINE 10 MG TAB PO SCH (20:52)
[2022-05-10] MEDS: METFORMIN HCL 500 MG TAB CR PO SCH (20:52)
[2022-05-11 00:18] VITALS: BP 139/62
[2022-05-11 05:58] VITALS: BP 112/56
[2022-05-11] MEDS ORDERED: FUROSEMIDE INJ 10 MG/ML 4 ML VIAL IV SCH (06:00)
[2022-05-11] MEDS: ACETAMINOPHEN 325 MG TAB PO PRN (06:31)
[2022-05-11] MEDS: CYCLOBENZAPRINE HCL 10 MG TAB PO PRN (06:31)
== END 2022-05-11 08:42 | disposition home or self-care (01) | DRG 291 ==
LOC: ER 13:01 → ERHOLD 15:48 → MED/SURG 21:23
PROVIDERS: ADMIT Internal Medicine; ATTEND Internal Medicine
PROC: 05HY33Z Insertion of Infusion Device into Upper Vein, Percutaneous Approach (ICD-10-PCS; principal; 2022-05-03)
PROC: 02HV33Z Insertion of Infusion Device into Superior Vena Cava, Percutaneous Approach (ICD-10-PCS; 2022-05-03)
PROC: 5A0935A Assistance with Respiratory Ventilation, Less than 24 Consecutive Hours, High Flow/Velocity Cannula (ICD-10-PCS; 2022-05-03)
DX: I11.0 Hypertensive heart disease with heart failure (principal); I50.33 Acute on chronic diastolic (congestive) heart failure; J96.01 Acute respiratory failure with hypoxia; Z68.42 Body mass index [BMI] 45.0-49.9, adult; E44.1 Mild protein-calorie malnutrition; E66.01 Morbid (severe) obesity due to excess calories; D64.9 Anemia, unspecified; R60.0 Localized edema; E88.09 Other disorders of plasma-protein metabolism, not elsewhere classified; E11.69 Type 2 diabetes mellitus with other specified complication; E78.5 Hyperlipidemia, unspecified; E87.6 Hypokalemia; J30.9 Allergic rhinitis, unspecified; Z20.822 Contact with and (suspected) exposure to COVID-19
CPT/HCPCS: 0223U; 36415; 36569; 71045; 71260; 80048; 80053; 82948; 83735; 83880; 84484; 85025; 93005; 93306; 94799; 99251; 99284; J1650; J1940; J3475; J3480; J7050; Q9967